=== PATIENT | female | born 1995 | race Caucasian/White ===

== ENCOUNTER 2017-02-03 21:23 | Emergency (ER) | payer BC ==
[~2017-02-03] VITALS: Ht 170.2 cm; Wt 59.5 kg
[2017-02-03 21:26] VITALS: TEMP 97.9
[2017-02-03] MEDS ORDERED: ZYRTEC 10MG10 MG PO (21:29)
[2017-02-03 23:47] VITALS: BP 124/68; PULSE 69
== END 2017-02-03 23:48 | disposition home or self-care (01) ==
LOC: COL.ER 21:23
DX: R51 Headache (principal); R07.9 Chest pain, unspecified

== ENCOUNTER 2018-07-06 17:11 | Emergency (ER) | payer BC ==
[~2018-07-06] VITALS: Ht 170.2 cm; Wt 59.1 kg
[~2018-07-06 17:11] MED LIST: ZYRTEC 10MG10 MG PO
[2018-07-06 17:13] VITALS: BP 149/84; PULSE 80; TEMP 99
[2018-07-06] MEDS ORDERED: NORCO 325 MG-51 TAB PO (17:56)
== END 2018-07-06 18:08 | disposition home or self-care (01) ==
LOC: COL.ER 17:11
DX: S49.92XA Unspecified injury of left shoulder and upper arm, initial encounter (principal); G43.909 Migraine, unspecified, not intractable, without status migrainosus; X50.0XXA Overexertion from strenuous movement or load, initial encounter

== ENCOUNTER → 2018-07-16 | Outpatient (CLI) | payer BC ==
[~2018-07-16] MED LIST changes: +NORCO 325 MG-51 TAB PO
== END ==
LOC: COL.RAD 12:44
DX: S43.005A Unspecified dislocation of left shoulder joint, initial encounter (principal)
CPT/HCPCS: A9585; Q9967